=== PATIENT | male | born 1995 ===

== ENCOUNTER → 2023-08-04 | Outpatient (CLI) | payer OTHER ==
[2023-08-04 11:05] LABS: Hematocrit 44.6 % (37.0-53.0); Hemoglobin 15.3 g/dL (13.5-17.5); Mean Corpuscular HGB 29.8 pg (26.0-34.0); Mean Corpuscular HGB Conc 34.3 g/dL (31.5-36.5); Mean Corpuscular Volume 87 fL (80-100); Mean Platelet Volume 10.1 fL (9.1-12.4); Platelet Count 330 K/mm3 (150-400); RDW Coefficient Variation 11.8 % (11.7-14.2); RDW Standard Deviation 37.6 fL (35.1-46.3); Red Blood Cell Count 5.14 M/mm3 (4.30-5.90); White Blood Cell Count 3.91 K/mm3 (4.00-11.30)
[2023-08-05 07:13] LABS: BUN 19 mg/dL (6-20); BUN/CREATININE RATIO 22 (9-20); CALCIUM, SERUM 9.1 mg/dL (8.7-10.2); CARBON DIOXIDE, TOTAL 25 mmol/L (20-29); CHLORIDE, SERUM 101 mmol/L (96-106); CHOLESTEROL, TOTAL 141 mg/dL (100-199); CREATININE, SERUM 0.87 mg/dL (0.76-1.27); GLUCOSE, SERUM 87 mg/dL (70-99); HDL CHOLESTEROL 33 mg/dL (>39); LDL CHOLESTEROL CALC 91 mg/dL (0-99); POTASSIUM, SERUM 4.5 mmol/L (3.5-5.2); SODIUM, SERUM 139 mmol/L (134-144); TRIGLYCERIDES 89 mg/dL (0-149); VLDL CHOLESTEROL CAL 17 mg/dL (5-40)
== END ==
LOC: LAB 07:24 → LAB SHORT 07:24
PROVIDERS: Student in an Organized Health Care Education/Training Program
DX: Z00.00 Encounter for general adult medical examination without abnormal findings (principal)
CPT/HCPCS: 80048; 80061; 83036; 85027